=== PATIENT | male | born 1980 | race Caucasian/White ===

== ENCOUNTER 2018-09-29 17:24 | Emergency (ER) | payer OTHER ==
[~2018-09-29] VITALS: Ht 193 cm; Wt 98.3 kg
[2018-09-29 17:35] VITALS: BP 142/90
[2018-09-29] MEDS ORDERED: DIPH,PERTUSS(ACELL),TET VAC/PF 0.5 ML IM-VACC ONE ×2 (17:48→18:00)
[2018-09-29] MEDS ORDERED: LIDOCAINE-MPF 1%, 5ML ONE (17:48)
[2018-09-29] MEDS ORDERED: MICROFIBRILLAR COLLAGEN 1 GM TP ONE (18:00)
[2018-09-29] MEDS ORDERED: LIDOCAINE-MPF 1%, 5ML INFIL ONE (18:00)
== END 2018-09-29 18:44 | disposition home or self-care (01) ==
LOC: ED 18:20
DX: S61.202A Unspecified open wound of right middle finger without damage to nail, initial encounter (principal); X58.XXXA Exposure to other specified factors, initial encounter; Y93.89 Activity, other specified; Y92.009 Unspecified place in unspecified non-institutional (private) residence as the place of occurrence of the external cause; Y99.8 Other external cause status
CPT/HCPCS: 29130; 90471; 90715